=== PATIENT | male | born 1985 | race African-American/Black ===

== ENCOUNTER 2018-08-02 02:06 | Emergency (ER) | payer SELFPAY ==
[~2018-08-02] VITALS: Ht 170.2 cm; Wt 102.1 kg
[~2018-08-02 02:06] MED LIST: AMOXICILLIN500 MG ORAL
[2018-08-02] MEDS ORDERED: NKM (02:11)
[2018-08-02 02:19] VITALS: BP 132/81
[2018-08-02 03:10] VITALS: BP 128/78
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
[2018-08-02 03:28] VITALS: BP 128/78
== END 2018-08-02 03:28 | disposition home or self-care (01) ==
LOC: EMR 03:11
DX: S01.111A Laceration without foreign body of right eyelid and periocular area, initial encounter (principal); W22.8XXA Striking against or struck by other objects, initial encounter; Y93.89 Activity, other specified; Y92.89 Other specified places as the place of occurrence of the external cause; Z88.1 Allergy status to other antibiotic agents
CPT/HCPCS: 99283